=== PATIENT | male | born 1990 | race Caucasian/White ===

== ENCOUNTER 2016-11-24 07:34 | Emergency (ER) | payer SELFPAY ==
--- NOTE | 2016-11-26 13:16 | ER ---
ADMIT: 11/24/2016 RM/LOC: ER [facility] MR#: [id number] [facility] [address] [place], [place] [id number] BRIANNA MANZANARES [address] [place] [address] [address] [place] [address] Emergency Room Report SEX: M AGE: 26 : 1990 DATE: 11/24/2016 HISTORY OF PRESENT ILLNESS: The patient is a 26-year-old male with past medical history of latent TB, taking 9th month of the Isoniazid, was brought to the ER with chief complaint of one day of left anterior precordial chest pain, which increases with lifting of the left arm. The patient could not recall any trauma or fall. The patient states he had similar pain in the past, which resolved spontaneously. The pain is intermittent and elicits with activity and raising the left arm. Pain is not pleuritic. PHYSICAL EXAMINATION: HEAD AND NECK: Normal. CHEST: The patient had no tenderness in the area. Bilateral equal breath sounds. There were no crepitation area or tenderness. HEART: Normal S1, S2. ABDOMEN: Soft. Rest of the physical exam is noncontributory. LABORATORY AND X-RAY DATA: Chest x-ray was not positive for any pneumothorax or other abnormalities. The left lung nodules from the previous year x-ray has decreased substantially. EMERGENCY ROOM COURSE: The patient received [place], questionable chest wall pain, the pain was resolved substantially. The patient was reexamined, did not develop any new symptoms and is stable for discharge, to be followed by the primary doctor as needed. Trung Zimmerman MD/ rodríguez JOB #: [id number] CC: Trung Zimmerman MD, Attending Physician Desi Saini MD, Family Physician
== END 2016-11-24 09:09 | disposition home or self-care (01) ==
LOC: ER 07:34
DX: R07.9 Chest pain, unspecified (principal)